=== PATIENT | female | born 1935 | race Caucasian/White ===

== ENCOUNTER 2020-09-21 06:59 | Outpatient (CLI) | payer MEDICARE, MEDICAID, SELFPAY ==
--- NOTE | 2020-09-21 08:00 | USCV_ITS ---
Bulmaro Zeina Age: 85 Gender: F : 1935 Exam Date: 09/21/2020 07:26 Ordering Phys: Gladys Patterson MD ([email or web address]) Technologist: Wilder Hollis Exam Location: [facility] [place] Indication: SOB, Murmur BP: 135 / 85 HR: 92 Rhythm: Sinus Technical Quality: Adequate MEASUREMENTS (Male / Female) Normal Values 2D ECHO LV Diastolic Diameter PLAX 3.8 cm 4.2 - 5.9 / 3.9 - 5.3 cm LV Systolic Diameter PLAX 2.9 cm IVS Diastolic Thickness 1.0 cm 0.6 - 1.0 / 0.6 - 0.9 cm IVS Systolic Thickness 1.3 cm LVPW Diastolic Thickness 1.1 cm 0.6 - 1.0 / 0.6 - 0.9 cm LVPW Systolic Thickness 1.6 cm LVOT Diameter 2.6 cm LV Ejection Fraction 2D Teich 47.2 % LV Ejection Fraction MOD 2C 42.7 % LV Ejection Fraction 2C AL 45.5 % LA Diameter 3.4 cm LA Width 3.7 cm LA Height 4.4 cm RA Width 3.7 cm RA Height 4.4 cm DOPPLER AV Peak Velocity 206.7 cm/s LVOT Peak Velocity 113.0 cm/s AV Area Cont Eq vti 3.6 cm squared AV Area Cont Eq pk 2.9 cm squared MV Area PHT 5.0 cm squared Mitral E to A Ratio 0.6 MV E' Velocity 54.0 cm/s Mitral E to MV E' Ratio 9.3 Mitral E to LV E' Lateral Ratio 11.4 Mitral E to LV E' Septal Ratio 7.8 TR Peak Velocity 141.3 cm/s TR Peak Gradient 8.0 mmHg TV Peak E Velocity 119.0 cm/s Right Atrial Pressure 3.0 mmHg Pulmonary Artery Systolic Pressu 11.0 mmHg PV Peak Velocity 99.0 cm/s FINDINGS Left Ventricle Normal left ventricular size, systolic function and wall thickness, with no regional wall motion abnormalities. Left ventricular ejection fraction is estimated at 65 %. Grade I diastolic dysfunction (abnormal relaxation filling pattern), normal to mildly elevated filling pressures. Right Ventricle Normal right ventricular size and systolic function. Right ventricular systolic pressure 11 mmHg. Right Atrium Normal right atrial size. Left Atrium Mildly increased left atrial size. Mitral Valve Moderate mitral annular calcification. Moderately thickened mitral valve. No mitral valve stenosis. Trace mitral valve regurgitation. Aortic Valve Aortic valve not well visualized. Aortic valve sclerosis without stenosis. Mild aortic valve regurgitation. Tricuspid Valve Structurally normal tricuspid valve. Trace tricuspid valve regurgitation. Pulmonic Valve Pulmonic valve not well visualized. Pericardium No pericardial effusion. Aorta Normal size aortic root and proximal ascending aorta. Normal sized inferior vena cava. CONCLUSIONS 1. Normal left ventricular size, systolic function and wall thickness, with no regional wall motion abnormalities. Left ventricular ejection fraction is estimated at 65 %. Grade I diastolic dysfunction (abnormal relaxation filling pattern), normal to mildly elevated filling pressures. 2. Moderate mitral annular calcification. Moderately thickened mitral valve. 3. Aortic valve sclerosis without stenosis. Mild aortic valve regurgitation. 4. No pericardial effusion. 5. No prior similar studies to compare. Gladys Patterson MD (Electronically Signed) Final Date: 25 September 2020 08:49 Amended: 30 November 2020 12:32 C
== END 2020-09-21 07:00 | disposition home or self-care (01) ==
PROVIDERS: PCP Physical Medicine & Rehabilitation; Visit Provider Internal Medicine Cardiovascular Disease
DX: I10 Essential (primary) hypertension (principal); R06.02 Shortness of breath; I50.9 Heart failure, unspecified
CPT/HCPCS: 93306

== ENCOUNTER 2020-12-13 10:43 | Emergency (ER) | payer MEDICARE, MEDICAID, SELFPAY ==
[2020-12-13 10:46] VITALS: BP 173/91; PULSE 90; RESP 18; TEMP 35.7; O2SAT 96; BMI 34.8
--- NOTE | 2020-12-13 11:09 | CT_ITS ---
WS: [id number] CT HEAD TECHNIQUE: Noncontrast CT of the head obtained from the skullbase to the vertex. CLINICAL INFORMATION: closed head injury COMPARISON: None. DLP: 909.[address] scans at [facility] use at least one of these dose optimization techniques: automated e xposure control; mA and/or kV adjustment per patient size (includes targeted exams where dose is matc hed to clinical indication); or iterative reconstruction. FINDINGS: Acute left subdural hematoma overlying the left posterior frontal lobe extending to the parietal lobe at the vertex. Subdural hematoma measures approximately 10 mm in maximum transverse dimension. Mild mass effect on the underlying brain parenchyma with mild left to right midline shift measuring 5 mm. No hydrocephalus. Additional tiny punctate focus of hemorrhage along the left frontal lobe. Soft tissue edema with scalp contusion overlying the right parietal convexity posteriorly. No calvari al fractures. Mastoid air cells and paranasal sinuses are well aerated. Mild mucosal thickening in th e ethmoid air cells. Intracranial vascular calcification. Moderate small vessel changes. Moderate parenchymal volume loss. 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 CT/CT head wo con* [id number] IMPRESSION: 1. Left posterior frontal parietal acute subdural hematoma with hemorrhagic bl ood products. This measures 10 mm in maximum transverse dimension. 2. Mild left to right midline shift measuring 5 mm. No hydrocephalus. 3. Moderate small vessel changes moderate parenchymal volume loss. 4. Chronic lacunar infarcts in bilateral basal ganglia and thalami. 5. Right parietal scalp soft tissue hematoma. No visualized fractures. Notified Lewis Vargas DO at 12/13/2020 12:15 PM.
[2020-12-13 11:30] LABS: Basophils % 0.2 %; Eosinophils # 0.1 10^3/uL (0.0-0.8); Eosinophils % 1.7 %; Hematocrit 35.3 % (37.0-47.0); Hemoglobin 11.3 g/dL (11.5-15.3); Lymphocytes # 0.6 10^3/uL (0.8-4.8); Lymphocytes % 9.1 %; Mean Corpuscular Hemoglobin 30.7 pg (28.0-34.0); Mean Corpuscular Volume 95.9 fl (81-99); Mean Platelet Volume 9.5 fL (7.4-10.4); Monocytes # 0.4 10^3/uL (0.2-0.9); Monocytes % 6.5 %; Neutrophils # 5.31 10^3/uL (1.8-7.7); Neutrophils % 82.3 %; Nucleated Red Blood Cells % 0 %; Platelet Count 241 10^3/cmm (130-400); Red Blood Count 3.68 10^6/uL (4.1-5.3); Red Cell Distribution Width 13.1 % (12.1-15.1); White Blood Count 6.5 10^3/uL (4.0-10.0)
[2020-12-13 11:56] LABS: Anion Gap 16.5 (5-19); Blood Urea Nitrogen 21 mg/dL (8-23); Calcium 8.8 mg/dL (8.5-10.5); Carbon Dioxide 27 mmol/L (22-29); Chloride 95 mmol/L (98-107); Glucose 219 mg/dL (65-115); Osmolality Calculated 288 mOsm/kg (285-295); Potassium 4.5 mmol/L (3.5-5.1); Sodium 134 mmol/L (136-145)
--- NOTE | 2020-12-13 12:07 | ED_ITS ---
HPI - Fall General: Chief Complaint: Fall Stated Complaint: TRIPPED, FALL Time Seen by Provider: 12/13/20 10:47 History of Present Illness: HPI Narrative: 85-year-old female was leaving a local hair salon and tripped over a parking block when she tried to step over it. She fell forward hit the back of the right side of her head she also has a small abrasion over the bridge of her nose. She denies loss consciousness she was ambulatory at scene she denies any hip pain or lower extremity pain denies any upper extremity pain or discomfort is able to move and demonstrate use of all extremities without pain. She is not on any anticoagulants. MD complaint: fall Onset (ago): minute(s) Fall from: standing Fall witnessed: yes, by bystander Place fall occurred: street Loss of consciousness: None Prolonged down time: no Symptoms prior to fall: none Context: tripped/slipped Location of injury: head Severity: moderate Quality: sharp Associated symptoms-after fall: Reports headache(s); Denies abdominal pain, chest pain, confusion, difficulty walking, hematuria, lightheadedness, neck pain, numbness, short of breath, vertigo or weakness Review of Systems Const: Denies: fever(s), chills, body aches, change in appetite, fatigue or malaise ENMT: Denies: throat pain, ear or mastoid pain, nasal discharge or nasal congestion Card: Denies: chest pain or lightheadedness Resp: Denies: dyspnea, productive cough or non-productive cough GI: Denies: abdominal pain : Denies: hematuria Musc: Denies: neck pain Skin/Breast: Denies: rash or pruritus Neuro: Reports: headache(s); Denies: difficulty walking, vertigo or confusion PFSH ED PFSH: Medical History Diabetes HTN (hypertension) Hyperlipidemia Surgical History Hx of hysterectomy Family History Brother Diabetes Sister Lung disease Daughter Lung disease Other Cancer Denies family history of CAD (coronary artery disease) Stroke Social History Smoking and tobacco status: former smoker Alcohol intake: never Physical Exam Const: COMMON NORMALS: no acute distress GENERAL APPEARANCE: cooperative and comfortable ORIENTATION/CONSCIOUSNESS: Yes awake, Yes oriented to person, Yes oriented to place and Yes oriented to time HENMT: COMMON NORMALS: normocephalic, atraumatic, hearing grossly normal bilaterally, external ears normal, EAC's normal, TM's normal bilaterally, Normal nasal mucous membranes and turbinates present, moist oral mucous membranes and oropharynx normal HEAD & SCALP: normocephalic and atraumatic NOSE: Normal nasal mucous membranes and turbinates present EXTERNAL EAR: Yes external ears normal EXTERNAL AUDITORY CANAL: EAC's normal TYMPANIC MEMBRANE: TM's normal bilaterally OTHER: Scalp laceration on the superior lateral occiput on the right. No active bleeding. Neck/C-Spine: COMMON NORMALS: no JVD Resp: COMMON NORMALS: normal respiratory effort, No retractions, No use of accessory muscles and clear to auscultation bilaterally AUSCULTATION: clear to auscultation bilaterally Cardio: COMMON NORMALS: no JVD, regular rate, regular rhythm and No murmurs present (Cardio) RATE: regular rate RHYTHM: regular rhythm GI: COMMON NORMALS: Soft to palpation and No hepatosplenomegaly present AUSCULTATION: Yes normoactive bowel sounds PALPATION: Yes Soft to palpation, No Tenderness to palpation present (GI), No Guarding due to palpation present (GI) and Yes No hepatosplenomegaly present Extremity: COMMON NORMALS: normal to inspection, capillary refill normal, no clubbing, cyanosis or edema, no calf tenderness and no pedal edema Neuro: SENSORIUM/ORIENTATION: Yes oriented to person, Yes oriented to place and Yes oriented to time Skin: COMMON NORMALS: no rashes or lesions noted GENERAL SKIN EXAM: no rashes or lesions noted Course Vital Signs: Vital signs: Vital Signs Temperature 96.3 F L 12/13/20 10:46 Pulse Rate 82 12/13/20 13:21 Respiratory Rate 18 12/13/20 13:21 Blood Pressure 138/83 12/13/20 13:21 Pulse Oximetry 99 12/13/20 13:21 MDM - Fall MDM Narrative: Medical decision making narrative: CT shows large subdural hematoma with a little bit of shift already having begun at maximum the subdural measures 10 mm. Arrangements made for transfr to trauma for neuro surgery eval, we do not have neurosurgery avaialble at our facility. Lab Data: Labs: Lab Results 12/13/20 12/13/20 11:24 11:24 WBC 6.5 10^3/uL 10^3/ uL (4.0-10.0) RBC 3.68 10^6/uL L 10 ^6/uL (4.1-5.3) Hgb 11.3 g/dL L g/dL (11.5-15.3) Hct 35.3 % L % (37.0-47.0) MCV 95.9 fl fl (81-99) MCH 30.7 pg pg (28.0-34.0) MCHC 32.0 g/dL g/dL (30.0-36.0) RDW 13.1 % % (12.1-15.1) Plt Count 241 10^3/cmm 10^3 /cmm (130-400) MPV 9.5 fL fL (7.4-10.4) Neut % (Auto) 82.3 % % Lymph % (Auto) 9.1 % % [place] % (Auto) 6.5 % % Eos % (Auto) 1.7 % % Baso % (Auto) 0.2 % % Neut # (Auto) 5.31 10^3/uL 10^3 /uL (1.8-7.7) Lymph # (Auto) 0.6 10^3/uL L 10^ 3/uL (0.8-4.8) [place] # (Auto) 0.4 10^3/uL 10^3/ uL (0.2-0.9) Eos # (Auto) 0.1 10^3/uL 10^3/ uL (0.0-0.8) Baso # (Auto) 0.0 10^3/uL 10^3/ uL (0.0-0.1) Nucleated RBC % (a uto) 0 % % Nucleated RBCs # 0.0 /100WBC /100W BC Sodium 134 mmol/L L mmol /L (136-145) Potassium 4.5 mmol/L mmol/L (3.5-5.1) Chloride 95 mmol/L L mmol/ L (98-107) Carbon Dioxide 27 mmol/L mmol/L (22-29) Anion Gap 16.5 (5-19) BUN 21 mg/dL mg/dL (8-23) Creatinine 1.1 mg/dL H mg/dL (0.5-0.9) GFR Calculation Not Reportable Glucose 219 mg/dL H mg/dL (65-115) Calculated Osmolal ity 288 mOsm/kg mOsm/ kg (285-295) Calcium 8.8 mg/dL mg/dL (8.5-10.5) Discharge Plan Discharge Patient Disposition: Transfer to ED Clinical Impression: Acute subdural hematoma Condition: Stable Prescriptions: No Action amitriptyline 25 mg tablet 25 mg PO DAILY RF: 0 citalopram 20 mg tablet 20 mg PO DAILY RF: 0 gabapentin 300 mg capsule 300 mg PO .2 caps AM, 3 caps PM RF: 0 lovastatin 20 mg tablet 20 mg PO DAILY RF: 0 pioglitazone 30 mg tablet 30 mg PO DAILY RF: 0 Januvia 25 mg tablet 25 mg PO DAILY RF: 0 Januvia 50 mg tablet 50 mg PO DAILY RF: 0 Referrals: Stuart Vera [Primary Care Provider] - Coding Level of Care Code ED Field Service Technician for Rudolph Patino
--- NOTE | 2020-12-13 12:21 | CT_ITS ---
WS: [id number] CT CERVICAL TRAUMA TECHNIQUE: Noncontrast CT of the cervical spine with coronal and sagittal reformatted images. CLINICAL INFORMATION: fall clsoed head injury COMPARISON: None. DLP: 823.[address] scans at [facility] use at least one of these dose optimization techniques: automated e xposure control; mA and/or kV adjustment per patient size (includes targeted exams where dose is matc hed to clinical indication); or iterative reconstruction. FINDINGS: Straightening of the normal cervical lordosis. Mild cervical curve. Moderate spondylitic changes. Ant erior hypertrophic changes C4-C7. Normal craniocervical junction. Normal C1-C2 articulation. Dens is normal in appearance. Normal occipital condyles. No high-grade spinal canal narrowing. Normal C1 ring . No evidence of acute fracture or dislocation. Normal prevertebral soft tissues. Mild mucosal thickening right mastoid tip. Left mastoid air cells are well aerated. CT/CT cervical spin wo con* [id number] IMPRESSION: No evidence of acute fracture or dislocation. Moderate spondylitic changes.
--- NOTE | 2020-12-13 12:35 | PC.NURSE ---
Report to Sarah Thomason RN. Norris.
[2020-12-13] MEDS: tetanus-dipt-pertussis 0.5 mL SDV IM (13:20)
[2020-12-13 13:21] VITALS: BP 138/83; PULSE 82; RESP 18; O2SAT 99
== END 2020-12-13 13:23 ==
PROVIDERS: Emergency Provider Family Medicine; PCP Physical Medicine & Rehabilitation
DX: S06.5X9A Traumatic subdural hemorrhage with loss of consciousness of unspecified duration, initial encounter (principal); W18.09XA Striking against other object with subsequent fall, initial encounter; Y92.481 Parking lot as the place of occurrence of the external cause; E11.9 Type 2 diabetes mellitus without complications; I10 Essential (primary) hypertension; E78.5 Hyperlipidemia, unspecified; Z87.891 Personal history of nicotine dependence; Z23 Encounter for immunization; S00.31XA Abrasion of nose, initial encounter
CPT/HCPCS: 51702; 70450; 72125; 80048; 85025; 90471; 90715; 99283

== ENCOUNTER → 2021-02-19 11:26 | Outpatient (BNVA) | payer MEDICARE, MEDICAID, SELFPAY | PROVIDERS: PCP Physical Medicine & Rehabilitation; Visit Provider Family Medicine | DX: E11.9 Type 2 diabetes mellitus without complications (principal); I10 Essential (primary) hypertension; E78.5 Hyperlipidemia, unspecified | CPT/HCPCS: 80053; 83036; 84439; 84443; 85025 ==

== ENCOUNTER → 2021-06-04 10:43 | Outpatient (BNVA) | payer MEDICARE, MEDICAID, SELFPAY | PROVIDERS: PCP Physical Medicine & Rehabilitation; Visit Provider Family Medicine | DX: I10 Essential (primary) hypertension (principal); E78.5 Hyperlipidemia, unspecified; E11.9 Type 2 diabetes mellitus without complications | CPT/HCPCS: 80053; 80061; 83036 ==

== ENCOUNTER → 2021-09-03 12:13 | Outpatient (BNVA) | payer MEDICARE, MEDICAID, SELFPAY | PROVIDERS: PCP Physical Medicine & Rehabilitation; Visit Provider Family Medicine | DX: E11.9 Type 2 diabetes mellitus without complications (principal); L03.116 Cellulitis of left lower limb; I10 Essential (primary) hypertension; E78.5 Hyperlipidemia, unspecified | CPT/HCPCS: 83036; 85025 ==

== ENCOUNTER → 2021-09-14 11:07 | Outpatient (BNVA) | payer MEDICARE, MEDICAID, SELFPAY | PROVIDERS: PCP Physical Medicine & Rehabilitation; Visit Provider Thoracic Surgery (Cardiothoracic Vascular Surgery) | DX: Z01.89 Encounter for other specified special examinations (principal) | CPT/HCPCS: 87070 ==

== ENCOUNTER → 2021-09-20 12:23 | Outpatient (BNVA) | payer MEDICARE, MEDICAID, SELFPAY | PROVIDERS: PCP Physical Medicine & Rehabilitation; Visit Provider Internal Medicine Cardiovascular Disease | DX: R01.1 Cardiac murmur, unspecified (principal); I10 Essential (primary) hypertension; I35.8 Other nonrheumatic aortic valve disorders; I35.1 Nonrheumatic aortic (valve) insufficiency; E11.9 Type 2 diabetes mellitus without complications; E78.5 Hyperlipidemia, unspecified; Z79.84 Long term (current) use of oral hypoglycemic drugs | CPT/HCPCS: 99213; 99214 ==

== ENCOUNTER → 2021-10-05 09:42 | Outpatient (BNVA) | payer MEDICARE, MEDICAID, SELFPAY | PROVIDERS: PCP Physical Medicine & Rehabilitation; Visit Provider Nurse Practitioner Family | DX: E11.9 Type 2 diabetes mellitus without complications (principal); I95.9 Hypotension, unspecified | CPT/HCPCS: 82962 ==

== ENCOUNTER → 2021-10-17 14:08 | Outpatient (BNVA) | payer MEDICARE, MEDICAID, SELFPAY | PROVIDERS: PCP Physical Medicine & Rehabilitation; Visit Provider Family Medicine | DX: E86.0 Dehydration (principal); I73.9 Peripheral vascular disease, unspecified; Z09 Encounter for follow-up examination after completed treatment for conditions other than malignant neoplasm; E11.9 Type 2 diabetes mellitus without complications | CPT/HCPCS: 80053; 83036 ==

== ENCOUNTER → 2021-12-25 09:43 | Outpatient (BNVA) | payer MEDICARE, MEDICAID, SELFPAY | PROVIDERS: PCP Family Medicine; Visit Provider Nurse Practitioner Family | DX: E16.2 Hypoglycemia, unspecified (principal) | CPT/HCPCS: 82962 ==

== ENCOUNTER → 2022-01-23 09:59 | Outpatient (BNVA) | payer MEDICARE, MEDICAID, SELFPAY | PROVIDERS: PCP Family Medicine; Visit Provider Family Medicine | DX: E11.9 Type 2 diabetes mellitus without complications (principal) | CPT/HCPCS: 83036 ==

== ENCOUNTER → 2022-04-22 09:06 | Outpatient (BNVA) | payer MEDICARE, MEDICAID, SELFPAY | PROVIDERS: PCP Family Medicine; Visit Provider Family Medicine | DX: E16.2 Hypoglycemia, unspecified (principal); E11.9 Type 2 diabetes mellitus without complications | CPT/HCPCS: 83036 ==

== ENCOUNTER 2022-06-13 12:28 | Observation (INO) | payer MEDICARE, MEDICAID, SELFPAY ==
[2022-06-13] VITALS (59 sets, daily range): BP systolic 120–190; BP diastolic 63–151; PULSE 63–88; RESP 9–29; TEMP 36.4–36.8; O2SAT 87–98
--- NOTE | 2022-06-13 12:41 | ED_ITS ---
HPI - Recheck/Abnormal Lab/Rx General: Chief Complaint: Recheck/Abnormal Lab/Rx Stated Complaint: Abnormal Lab Time Seen by Provider: 06/13/22 12:37 Source: patient Mode of arrival: ambulatory History of Present Illness: 87-year-old female who presents to the emergency room complaining of black tarry stools. She was seen by the doctor noted on told her hemoglobin was 7. She has been lightheaded and dizzy she has had the black tarry stools for the last several days she denies any fever sweats or chills no vomiting. She is not on any anticoagulants has not been taking any Pepto-Bismol or iron supplementation. She does take ibuprofen relatively frequently. MD complaint: abnormal lab Associated symptoms: shortness of breath and malaise Review of Systems Const: Denies: fever(s), chills, body aches, change in appetite, fatigue or malaise ENMT: Denies: throat pain, ear or mastoid pain, nasal discharge or nasal congestion Card: Denies: chest pain, palpitations, irregular heart rhythm, edema, dyspnea on exertion or orthopnea Resp: Denies: dyspnea, productive cough or non-productive cough GI: Denies: abdominal pain, nausea, vomiting, hematemesis, coffee ground emesis, diarrhea, constipation, bloating, hematochezia or melena : Denies: flank pain, difficulty voiding, dysuria, urinary frequency or urinary urgency Skin/Breast: Denies: rash or pruritus [facility] ED PFSH: Medical History Diabetes HTN (hypertension) Hyperlipidemia Recurrent dehydration Surgical History Hx of hysterectomy Family History Brother Diabetes Sister Lung disease Daughter Lung disease Other Cancer Denies family history of CAD (coronary artery disease) Stroke Social History Smoking and tobacco status: former smoker Alcohol intake: never Substance/Drug Use: never Physical Exam Const: COMMON NORMALS: no acute distress GENERAL APPEARANCE: cooperative and comfortable ORIENTATION/CONSCIOUSNESS: Yes awake, Yes oriented to person, Yes oriented to place and Yes oriented to time HENMT: COMMON NORMALS: normocephalic, atraumatic and hearing grossly normal bilaterally HEAD & SCALP: normocephalic and atraumatic Resp: COMMON NORMALS: normal respiratory effort, No retractions, No use of accessory muscles and clear to auscultation bilaterally AUSCULTATION: clear to auscultation bilaterally Cardio: COMMON NORMALS: regular rate, regular rhythm and No murmurs present (Cardio) RATE: regular rate RHYTHM: regular rhythm GI: COMMON NORMALS: Soft to palpation and No hepatosplenomegaly present AUSCULTATION: Yes normoactive bowel sounds PALPATION: Yes Soft to palpation, No Tenderness to palpation present (GI), No Guarding due to palpation present (GI) and Yes No hepatosplenomegaly present Extremity: COMMON NORMALS: normal to inspection, capillary refill normal, no clubbing, cyanosis or edema, no calf tenderness and no pedal edema Neuro: SENSORIUM/ORIENTATION: Yes oriented to person, Yes oriented to place and Yes oriented to time Skin: COMMON NORMALS: no rashes or lesions noted GENERAL SKIN EXAM: no rashes or lesions noted Course Vital Signs: Vital signs: Vital Signs Temperature 97.6 F 06/15/22 16:13 Pulse Rate 95 06/15/22 16:13 Respiratory Rate 17 06/15/22 16:13 Blood Pressure 157/73 06/15/22 16:13 Pulse Oximetry 96 06/15/22 16:13 Oxygen Delivery Me thod Room Air 06/15/22 00:00 MDM - Recheck/Abnormal Lab/Rx Medical Decision Making Globin 8.7. Patient is having black tarry stools she was positive on a Hemoccult. Has had a significant decrease in hemoglobin. Discussed with hospitalist will admit consult surgery for possible EGD. Serial hemoglobins has been given Protonix. Mild acute kidney injury. Medical Records I reviewed the patient's medical records. Lab Data I reviewed the patient's lab results. 06/15/22 06:30 06/15/22 06:30 Radiology Impressions Abdomen/Pelvis CT 06/13/22 14:38 IMPRESSION: 1. Cholelithiasis without evidence for acute cholecystitis. 2. Mild hepatomegaly. 3. No renal obstruction. 4. No adenopathy or ascites. Laboratory Results WBC 4.7 10^3/uL (4.0-10.0) 06/13/22 13:15 RBC 2.23 10^6/uL (4.1-5.3) L 06/13/22 13:15 Hgb 6.9 g/dL (11.5-15.3) L 06/13/22 13:15 Hct 21.3 % (37.0-47.0) L 06/13/22 13:15 MCV 95.5 fl (81-99) 06/13/22 13:15 MCH 30.9 pg (28.0-34.0) 06/13/22 13:15 MCHC 32.4 g/dL (30.0-36.0) 06/13/22 13:15 RDW 12.6 % (12.1-15.1) 06/13/22 13:15 Plt Count 222 10^3/cmm (130-400) 06/13/22 13:15 MPV 9.9 fL (7.4-10.4) 06/13/22 13:15 Neut % (Auto) 62.4 % 06/13/22 13:15 Lymph % (Auto) 23.3 % 06/13/22 13:15 [place] % (Auto) 9.7 % 06/13/22 13:15 Eos % (Auto) 3.8 % 06/13/22 13:15 Baso % (Auto) 0.2 % 06/13/22 13:15 Neut # (Auto) 2.95 10^3/uL (1.8-7.7) 06/13/22 13:15 Lymph # (Auto) 1.1 10^3/uL (0.8-4.8) 06/13/22 13:15 [place] # (Auto) 0.5 10^3/uL (0.2-0.9) 06/13/22 13:15 Eos # (Auto) 0.2 10^3/uL (0.0-0.8) 06/13/22 13:15 Baso # (Auto) 0.0 10^3/uL (0.0-0.1) 06/13/22 13:15 Nucleated RBC % (auto) 0 % 06/13/22 13:15 Nucleated RBCs # 0.0 /100WBC 06/13/22 13:15 PT 13.30 SECONDS (12.1-14.9) 06/13/22 13:15 INR 0.98 (0.8-1.2) 06/13/22 13:15 APTT 29.0 SECONDS (23.9-36.7) 06/13/22 13:15 Sodium 137 mmol/L (136-145) 06/13/22 13:15 Potassium 3.8 mmol/L (3.5-5.1) 06/13/22 13:15 Chloride 99 mmol/L (98-107) 06/13/22 13:15 Carbon Dioxide 25 mmol/L (22-29) 06/13/22 13:15 Anion Gap 16.8 (5-19) 06/13/22 13:15 BUN 37 mg/dL (8-23) H 06/13/22 13:15 Creatinine 2.4 mg/dL (0.5-0.9) H 06/13/22 13:15 GFR Calculation Not Reportable 06/13/22 13:15 Glucose 121 mg/dL (65-115) H 06/13/22 13:15 Calculated Osmolality 294 mOsm/kg (285-295) 06/13/22 13:15 Calcium 8.9 mg/dL (8.5-10.5) 06/13/22 13:15 Total Bilirubin 0.2 mg/dL (0.15-1.2) 06/13/22 13:15 AST 16 U/L (0-32) 06/13/22 13:15 ALT 11 U/L (0-33) 06/13/22 13:15 Alkaline Phosphatase 47 U/L (35-105) 06/13/22 13:15 Total Protein 7.0 g/dL (6.6-8.7) 06/13/22 13:15 Albumin 3.9 g/dL (3.5-5.2) 06/13/22 13:15 Globulin 3.1 g/dL (1.3-4.6) 06/13/22 13:15 Urine Color Yellow (Yellow) 06/13/22 13:51 Urine Appearance Clear (CLEAR) 06/13/22 13:51 Urine pH 5 (5-7) 06/13/22 13:51 Ur Specific [place] 1.005 (1.005-1.030) 06/13/22 13:51 Urine Protein Neg (Negative) 06/13/22 13:51 Urine Glucose (UA) Norm (Normal) 06/13/22 13:51 Urine Ketones Negative (Negative) 06/13/22 13:51 Urine Blood 2+ (Negative) H 06/13/22 13:51 Urine Nitrate Negative (Negative) 06/13/22 13:51 Urine Bilirubin Neg (Negative) 06/13/22 13:51 Urine Urobilinogen Neg mg/dL (Negative) 06/13/22 13:51 Ur Leukocyte Esterase Negative (Negative) 06/13/22 13:51 Urine RBC 0-4 /hpf (0-2) H 06/13/22 13:51 Urine WBC None /hpf (0-5) 06/13/22 13:51 Ur Squamous Epith Cells None /hpf (0-5) 06/13/22 13:51 Amorphous Sediment 1+ /hpf 06/13/22 13:51 Urine Bacteria None /hpf (NONE) 06/13/22 13:51 Blood Type B Positive 06/13/22 13:15 Rho(D) Type Positive 06/13/22 13:15 Antibody Screen Not Reportable 06/13/22 13:15 PEG Antibody Screen Negative 06/13/22 13:15 Crossmatch See Detail 06/13/22 13:15 Discharge Plan Discharge Patient Disposition: Admitted As Inpatient Admit Provider: Maritza Adhikari Clinical Impression: GI (gastrointestinal bleed), IRVING (acute kidney injury) Condition: Stable Discharge Diet: Usual diet Discharge Activity: Resume usual activity Coding Level of Care Code ED Janitorial Maintenance Worker for Chg Sukumar
[2022-06-13] MEDS: ondansetron 2 mg/ML SDV 2 mL 4 MG IVP (13:22)
[2022-06-13 13:31] LABS: Basophils % 0.2 %; Eosinophils # 0.2 10^3/uL (0.0-0.8); Eosinophils % 3.8 %; Hematocrit 21.3 % (37.0-47.0); Hemoglobin 6.9 g/dL (11.5-15.3); Lymphocytes # 1.1 10^3/uL (0.8-4.8); Lymphocytes % 23.3 %; Mean Corpuscular HGB Conc 32.4 g/dL (30.0-36.0); Mean Corpuscular Hemoglobin 30.9 pg (28.0-34.0); Mean Corpuscular Volume 95.5 fl (81-99); Mean Platelet Volume 9.9 fL (7.4-10.4); Monocytes # 0.5 10^3/uL (0.2-0.9); Monocytes % 9.7 %; Neutrophils # 2.95 10^3/uL (1.8-7.7); Neutrophils % 62.4 %; Nucleated Red Blood Cells % 0 %; Platelet Count 222 10^3/cmm (130-400); Red Blood Count 2.23 10^6/uL (4.1-5.3); Red Cell Distribution Width 12.6 % (12.1-15.1); White Blood Count 4.7 10^3/uL (4.0-10.0)
[2022-06-13 13:44] LABS: INR 0.98 (0.8-1.2)
[2022-06-13 13:48] LABS: Alanine Aminotransferase 11 U/L (0-33); Albumin Level 3.9 g/dL (3.5-5.2); Alkaline Phosphatase 47 U/L (35-105); Anion Gap 16.8 (5-19); Aspartate Amino Transferase 16 U/L (0-32); Blood Urea Nitrogen 37 mg/dL (8-23); Calcium 8.9 mg/dL (8.5-10.5); Carbon Dioxide 25 mmol/L (22-29); Chloride 99 mmol/L (98-107); Globulin 3.1 g/dL (1.3-4.6); Glucose 121 mg/dL (65-115); Osmolality Calculated 294 mOsm/kg (285-295); Potassium 3.8 mmol/L (3.5-5.1); Sodium 137 mmol/L (136-145); Total Bilirubin 0.2 mg/dL (0.15-1.2)
--- NOTE | 2022-06-13 14:19 | PC.PHAR ---
pt states vazquez friend [phone] sets up her medications-vazquez states the pt doesnt take cymbalta 20mg daily ext med history shows last filled 05/21/22 30d/s-vazquez states the pt takes ibu 800mg qam and 1600mg hs rx filled 06/11/22 30d/s for 800mg tid prn-vazquez states the pt takes gabapentin 600mg hs rx filled 06/04/22 30d/s for 300mg bid-notes are made in the pharmacy comments
[2022-06-13 14:32] LABS: Add Urine Microscopic? YES; Bilirubin Urine Neg (Negative); Blood Urine 2+ (Negative); Glucose Urine UA Norm (Normal); Ketones Urine Negative (Negative); Leukocyte Esterase Urine Negative (Negative); Nitrate Urine Negative (Negative); Protein Urine Neg (Negative); Specific Gravity, Urine 1.005 (1.005-1.030); Urine Appearance Clear (CLEAR); Urine Color Yellow (Yellow); Urobilinogen Urine Neg (Negative); pH Urine 5 (5-7)
[2022-06-13 14:33] LABS: Add Urine Culture? No; Amorphous Sediment Urine 1+ /hpf; RBC Urine 0-4 /hpf (0-2)
--- NOTE | 2022-06-13 14:38 | CT_ITS ---
WS: [id number] CT ABDOMEN AND PELVIS NONCONTRAST HISTORY: Abdominal pain TECHNIQUE: Imaging performed through the abdomen and pelvis. Coronal and sagittal reformats are submi tted. All CT scans at [facility] use at least one of these dose optimization techniques: auto mated exposure control; mA and/or kV adjustment per patient size (includes targeted exams where dose is matched to clinical indication); or iterative reconstruction. DLP: 805.33 mGy.cm COMPARISON: None available. Lower thorax: Lung bases are clear. Visualized heart is normal. No hiatal hernia. Liver: Liver is enlarged extending to the iliac crest. No bile duct dilatation. Gallbladder: Normally distended gallbladder with single 11 mm gallstone at the neck. No adjacent infl ammation. Pancreas: Normal size and attenuation. Normal pancreatic duct. No pancreatitis or mass. Spleen: Normal. Adrenal glands: Normal. No mass. Right kidney: Normal size kidney with no mass or hydronephrosis. Left kidney: Normal size kidney with no mass or hydronephrosis. Aorta: Mild atherosclerosis abdominal aorta with no aneurysm. No free fluid, intraperitoneal air or significant lymphadenopathy. GI tract: Normal noncontrast imaging of the stomach, small bowel and colon. No obstruction or wall th ickening. Abdominal wall: Negative. No hernia. Pelvis: Artifact through the pelvis from patient's RIGHT hip arthroplasty. Visualized bladder is nega tive. No free fluid or adenopathy. Osseous structures: Moderate degenerative spondylitic changes in the lumbar spine. CT/CT abdomen pelvis wo con [id number] IMPRESSION: 1. Cholelithiasis without evidence for acute cholecystitis. 2. Mild hepatomegaly. 3. No renal obstruction. 4. No adenopathy or ascites.
[2022-06-13] MEDS: pantoprazole 40 mg SDV 80 MG IVP (14:55)
[2022-06-13] MEDS: sodium chloride 0.9% 1,000 ML 999 ML IV (14:55)
[2022-06-13] MEDS: sodium chloride 0.9% 1,000 ML 100 ML IV (18:31)
--- NOTE | 2022-06-13 19:04 | P.HP_ITS ---
Providers/Chief Complaint Admitting Physician: Maritza Adhikari MD Primary Care Provider: Joaquin Kitchen DO Chief Complaint: Abnormal Lab History of Present Illness Zeina Chamberlain is a 87 year old female presenting with abdominal discomfort and drak black melanotic stools over the past week. Prsented to her PCP where she was found to have anemia. Vomiting + but no hematemesis. No fever. no past h/o GI bleed. Chronically takes NSAIds and reports heartburn. Today cr found to be 2.5, previosuly 1.3 from 09/2021. Review of Systems General: Reports: 10 or more systems reviewed and unremarkable except in HPI and below Const: Denies: fever(s), chills or body aches Eyes: Denies: change in vision, blurry vision or photophobia ENMT: Reports: hoarseness; Denies: throat pain, enlarged tonsils, odynophagia or nasal congestion Card: Denies: chest pain, palpitations, irregular heart rhythm, edema, swelling of feet/ankles, lightheadedness, pre-syncope, dyspnea on exertion or orthopnea Resp: Denies: dyspnea, productive cough, non-productive cough, wheezing, stridor, pain on inspiration, change in phlegm color, hemoptysis or chest congestion GI: Denies: abdominal pain, nausea, vomiting, hematemesis, coffee ground emesis, dysphagia, heartburn, diarrhea, constipation, GI cramping, change in stool character, hematochezia or melena : Denies: flank pain, difficulty voiding, dysuria, urinary frequency, urinary urgency, urinary hesitancy or hematuria Musc: Denies: neck pain, back pain, extremity pain, joint swelling, joint warmth or deformity Neuro: Denies: headache(s), numbness in extremities, weakness in extremities, sensory changes, difficulty walking, frequent falls, dizziness, vertigo, behavioral changes, Slurred speech present or seizure-like activity Psych: Denies: anxiety, depression, suicidal ideation or homicidal ideation Endo: Denies: polyuria, polydipsia, tired all the time, cold intolerance or hot flashes Jayesh/Lymph: Denies: easy bruising or easy bleeding Medications/Allergies Home Medications Medication Instructions Recorded Confirmed Last Taken Type potassium gluconate 595 mg (99 mg) 595 mg PO BEDTIME 02/19/21 06/13/2223 History tablet metoprolol succinate 50 mg 50 mg PO QAM 12/03/21 06/13/22 06/13/22 History tablet,extended release 24 hr efhovyrm-diz- 250 mg-dha 90 1 cap PO QAM 04/22/22 06/13/22 06/13/22 Histo ry mg-epa 160 hl-alnx-npnr-zeax capsule (Ocuvite Adult 50 Plus) amitriptyline 25 mg tablet 25 mg PO QAM 06/13/22 06/13/22 06/13/22 History biotin 5,000 mcg sublingual tablet 10,000 mcg sublingual QAM 06/13/22 06/13/22 06/13/22 History chromium picolinate 400 mcg tablet 400 mcg PO QAM 06/13/22 06/13/22 06/13/22 History gabapentin 300 mg capsule 600 mg PO BEDTIME 06/13/22 06/13/22 06/12/22 History ibuprofen 800 mg tablet See Rx Instructions .Route .COMPLEX 06/13/22 06/13/22 0 06/13/22 History lovastatin 20 mg tablet 20 mg PO QAM 06/13/22 06/13/22 06/13/22 History pioglitazone 30 mg tablet 30 mg PO QAM 06/13/22 06/13/22 06/13/22 History vitamin with calcium 1 tab PO QAM 06/13/22 06/13/22 06/13/22 History no.72-iron 27 mg-folic acid 1 mg tablet (M-Anisa Plus) sitagliptin phosphate 50 mg tablet 50 mg PO QAM 06/13/22 06/13/22 06/13/22 History (Januvia) Allergies Allergy/AdvReac Type Severity Reaction Status Date / Time No Known Allergies Allergy Verified 06/13/22 14:07 PFSH Acute PFSH: Medical History Diabetes HTN (hypertension) Hyperlipidemia Recurrent dehydration Surgical History Hx of hysterectomy Family History Brother Diabetes Sister Lung disease Daughter Lung disease Other Cancer Denies family history of CAD (coronary artery disease) Stroke Social History Smoking and tobacco status: former smoker Alcohol intake: never Substance/Drug Use: never Vitals/I&O/Wt Last Vital Signs Temp 97.5 F L 06/13/22 16:11 Pulse 73 06/13/22 18:47 Resp 20 H 06/13/22 18:00 BP 188/79 06/13/22 18:47 Pulse Ox 97 06/13/22 18:47 O2 Del Method Room Air 06/13/22 18:11 06/13/22 06/13/22 06/13/22 06:59 14:59 22:59 Intake Total 1000 / 1000 Balance 1000 / 1000 Weight last 48 hrs Weight 86.636 kg Physical Exam Narrative: General: No acute distress, AO x3 HEENT: PERRLA, pupils bilaterally equal and reactive, pallors not present Chest: Normal vesicular breath sounds, no added sounds, equal good air entry bilaterally CVS: S1-S2 regular, no murmurs, no tachycardia, no gallops, no rubs Abdomen: Soft, nontender, no organomegaly, bowel sounds present Neuro: No focal deficits, no facial deformity, AO x3, power 5/5 in all limbs Data 06/14/22 17:07 06/14/22 04:31 A&P Assessment and plan (1) GI bleed: Upper GI bleed p/w miryam suspect gastritis vs gastric vs duodenal ulcer likely precipitated by chronic NSAID use NPO Received protonix 80 mg iv x 1 in ER, start 40mg iv q12h Surgery consult for EGD (2) Anemia: Anemia secondary to upper GI bleed. Transfuse one unit PRBC check H& H every 8 hrs Plan Possible IRVING on CKD, last known Cr. 1.3 from 09/2021 May have underlying CKD vs IRVING on CKD Hold all NSAIDs avoid nephrotoxic medications Attestations Medical Necessity Statement*: > 2 midnight admission anticipated for UGI bleed, EGD, close H&H monitoring Coding Level of Care Code Acute Code for Chg Fwd Diagnoses GI bleed K92.2 Anemia D64.9
[2022-06-13 20:32] LABS: Glucose Point of Care 253 mg/dL (70-110)
[2022-06-13] MEDS: gabapentin 300 mg Capsule 600 MG PO (21:03)
[2022-06-13] MEDS: insulin lispro 100 unit/1 mL SUBCUT (21:03)
[2022-06-13 21:07] LABS: Basophils % 0.2 %; Eosinophils # 0.2 10^3/uL (0.0-0.8); Eosinophils % 4.3 %; Hematocrit 25.4 % (37.0-47.0); Hemoglobin 8.2 g/dL (11.5-15.3); Lymphocytes # 1.2 10^3/uL (0.8-4.8); Lymphocytes % 23.1 %; Mean Corpuscular HGB Conc 32.3 g/dL (30.0-36.0); Mean Platelet Volume 9.9 fL (7.4-10.4); Monocytes # 0.5 10^3/uL (0.2-0.9); Monocytes % 9.8 %; Neutrophils # 3.29 10^3/uL (1.8-7.7); Neutrophils % 62.2 %; Nucleated Red Blood Cells % 0 %; Platelet Count 217 10^3/cmm (130-400); Red Blood Count 2.73 10^6/uL (4.1-5.3); Red Cell Distribution Width 13.6 % (12.1-15.1); White Blood Count 5.3 10^3/uL (4.0-10.0)
--- NOTE | 2022-06-13 21:20 | PC.NURSE ---
Previous IV in left AC removed due to infiltration. Catheter tip intact upon removal, patient tolerated well.
[2022-06-13] MEDS: pantoprazole 40 mg SDV IVP (22:28)
[2022-06-14] VITALS (7 sets, daily range): BP systolic 123–182; BP diastolic 67–91; PULSE 81–91; RESP 16–20; TEMP 36.3–36.6; O2SAT 93–96
--- NOTE | 2022-06-14 04:16 | PC.NURSE ---
PO morning meds held per Dr Jorgensen, as patient is currently NPO.
[2022-06-14 05:40] LABS: Alanine Aminotransferase 10 U/L (0-33); Albumin Level 3.4 g/dL (3.5-5.2); Alkaline Phosphatase 45 U/L (35-105); Anion Gap 16.8 (5-19); Aspartate Amino Transferase 15 U/L (0-32); Blood Urea Nitrogen 41 mg/dL (8-23); Calcium 8.2 mg/dL (8.5-10.5); Carbon Dioxide 23 mmol/L (22-29); Chloride 105 mmol/L (98-107); Globulin 2.9 g/dL (1.3-4.6); Glucose 99 mg/dL (65-115); Osmolality Calculated 302 mOsm/kg (285-295); Potassium 3.8 mmol/L (3.5-5.1); Sodium 141 mmol/L (136-145); Total Bilirubin 0.2 mg/dL (0.15-1.2); Total Protein 6.3 g/dL (6.6-8.7)
[2022-06-14] MEDS: sodium chloride 0.9% 1,000 ML 100 ML IV (06:11)
[2022-06-14] MEDS: pantoprazole 40 mg SDV IVP ×2 (06:11→17:19)
[2022-06-14 06:58] LABS: Glucose Point of Care 137 mg/dL (70-110)
[2022-06-14] MEDS: morphine 4 mg/mL SDV 1 mL 2 MG IVP (08:28)
[2022-06-14 11:08] LABS: Glucose Point of Care 157 mg/dL (70-110)
--- NOTE | 2022-06-14 12:13 | P.ANESASSM_ITS ---
Pre-Anesthetic Assessment Height/Weight: Height 1.63 m Weight 86.636 kg Temp Pulse Resp BP Pulse Ox O2 Del Method 97.4 F L 86 16 172/90 93 Room Air 06/14/22 11:48 06/14/22 11:48 06/14/22 11:48 06/14/22 11:48 06/14/22 11:48 06/14/22 11:48 Operation Date: 06/14/22 11:45 Proposed Procedures p EGD(Not Applicable) - Danish Fernandes DO Familial anesthetic complications: None Was Beta Samir taken within 24 hours: N/A Was Clonidine taken within 24 hours: N/A Social No alcohol and No tobacco Exam alert, oriented x 3, clear to auscultation bilaterally and regular rate & rhythm murmur Airway Mallampati: Class III Dentition: false CV/HEM Anemia and Hypertension GI Gi bleed Metabolic Diabetes Mellitus, Hyperlipidemia and Morbid Obesity Anesthetic Plan ASA status: 3 Anesthesia: MAC Risk of > 500 ml blood loss (7ml/kg in children): No Medications/Allergies Home Medications Medication Instructions Recorded Confirmed Last Taken Type potassium gluconate 595 mg (99 mg) 595 mg PO BEDTIME 02/19/21 06/13/22 06/12/22 History tablet metoprolol succinate 50 mg 50 mg PO QAM 12/03/21 06/13/22 06/13/22 History tablet,extended release 24 hr ecpjelkg-lcs- 250 mg-dha 90 1 cap PO QAM 04/22/22 06/13/22 06/13/22 History mg-epa 160 lz-gczh-vaze-zeax capsule (Ocuvite Adult 50 Plus) amitriptyline 25 mg tablet 25 mg PO QAM 06/13/22 06/13/22 06/13/22 History biotin 5,000 mcg sublingual tablet 10,000 mcg sublingual QAM 06/13/22 06/13/22 06/13/22 History chromium picolinate 400 mcg tablet 400 mcg PO QAM 06/13/22 06/13/22 06/13/22 History gabapentin 300 mg capsule 600 mg PO BEDTIME 06/13/22 06/13/22 06/12/22 History ibuprofen 800 mg tablet See Rx Instructions .Route .COMPLEX 06/13/22 06/13/22 06/13/22 History lovastatin 20 mg tablet 20 mg PO QAM 06/13/22 06/13/22 06/13/22 History pioglitazone 30 mg tablet 30 mg PO QAM 06/13/22 06/13/22 06/13/22 History vitamin with calcium 1 tab PO QAM 06/13/22 06/13/22 06/13/22 History no.72-iron 27 mg-folic acid 1 mg tablet (M-Anisa Plus) sitagliptin phosphate 50 mg tablet 50 mg PO QAM 06/13/22 06/13/22 06/13/22 History (Oscaruvia) Allergies Allergy/AdvReac Type Severity Reaction Status Date / Time No Known Allergies Allergy Verified 06/13/22 14:07 Current Medications Generic Name Dose Route Start Last Admin Trade Name Freq PRN Reason Stop Dose Admin Amitriptyline HCl 25 mg 06/14/22 06:00 06/14/22 04:16 Amitriptyline 25 Mg Tablet PO Not Given QAM ANNA Atorvastatin Calcium 20 mg 06/14/22 06:00 06/14/22 04:16 Atorvastatin 40 Mg Tablet PO Not Given QAM ANNA Gabapentin 600 mg 06/13/22 21:00 06/13/22 21:03 Gabapentin 300 Mg Capsule PO 600 mg BEDTIME ANNA Administration Sodium Chloride 1,000 mls @ 75 mls/hr 06/13/22 18:10 06/14/22 06:11 Sodium Chloride 0.9% IV 100 mls/hr .[id number] ANNA Administration Insulin Human Lispro 0 unit 06/13/22 21:00 06/14/22 11:29 Insulin Lispro 100 Unit/1 Ml SUBCUT Not Given WM&BEDTIME ANNA Protocol Metoprolol Succinate 50 mg 06/14/22 06:00 06/14/22 04:16 Metoprolol Succinate Er (24 Hr) 50 Mg Tablet PO Not Given QAM ANNA Morphine Sulfate 2 mg 06/13/22 18:58 06/14/22 08:28 Morphine 4 Mg/Ml Sdv 1 Ml IVP 2 mg Q4H PRN Administration SEVERE PAIN Pantoprazole Sodium 40 mg 06/13/22 19:00 06/14/22 06:11 Pantoprazole 40 Mg Sdv IVP 40 mg Q12H ANNA Administration PFSH Anesthesia Medical History Diabetes HTN (hypertension) Hyperlipidemia Recurrent dehydration Surgical History Hx of hysterectomy Family History Brother Diabetes Sister Lung disease Daughter Lung disease Other Cancer Denies family history of CAD (coronary artery disease) Stroke Social History Smoking and tobacco status: former smoker Alcohol intake: never Substance/Drug Use: never Data Anesthesia 06/13/22 21:00 06/14/22 04:31 Short CBC 06/13/22 06/13/22 Range/Units 13:15 21:00 WBC 4.7 5.3 (4.0-10.0) 10^3/uL Hgb 6.9 L 8.2 L (11.5-15.3) g/dL Hct 21.3 L 25.4 L (37.0-47.0) % MCV 95.5 93.0 (81-99) fl Plt Count 222 217 (130-400) 10^3/cmm Neut % (Auto) 62.4 62.2 % Neut # (Auto) 2.95 3.29 (1.8-7.7) 10^3/uL BMP 06/13/22 06/14/22 13:15 04:31 Sodium 137 141 Potassium 3.8 3.8 Chloride 99 105 Carbon Dioxide 25 23 BUN 37 H 41 H Creatinine 2.4 H 2.5 H Glucose 121 H 99 Calcium 8.9 8.2 L Liver Function 06/13/22 06/14/22 Range/Units 13:15 04:31 Total Bilirubin 0.2 0.2 (0.15-1.2) mg/dL AST 16 15 (0-32) U/L ALT 11 10 (0-33) U/L Alkaline Phosphatase 47 45 (35-105) U/L Albumin 3.9 3.4 L (3.5-5.2) g/dL Urine 06/13/22 Range/Units 13:51 Urine Color Yellow (Yellow) Urine Appearance Clear (CLEAR) Urine pH 5 (5-7) Ur Specific [place] 1.005 (1.005-1.030) Urine Protein Neg (Negative) Urine Glucose (UA) Norm (Normal) Urine Ketones Negative (Negative) Urine Nitrate Negative (Negative) Urine Bilirubin Neg (Negative) Ur Leukocyte Esterase Negative (Negative) Urine RBC 0-4 H (0-2) /hpf Urine WBC None (0-5) /hpf Blood Bank 06/13/22 13:15 Blood Type B Positive Rho(D) Type Positive Antibody Screen Not Reportable [facility] 06/13/22 13:15 PT 13.30 INR 0.98 APTT 29.0 Cardiac Studies: Echocardiogram 09/21/20
--- NOTE | 2022-06-14 12:41 | PM.CONSULT ---
Providers/Reason For Consult Consulting Physician/Specialty*: Dr. Danish Fernandes DO/General surgery Reason for Consult*: Acute blood loss anemia, melena Attending Physician: Maritza Adhikari MD Primary Care Provider: Joaquin Kitchen DO History of Present Illness History of Present Illness Zeina Chamberlain is a 87 year old female who presents to the hospital from her primary care physician's office due to melena. She was found to be anemic. She reports that she is having black stools for the last week. Just prior to that she felt ill and was vomiting. She denies any hematemesis. She denies any recent travel or sick contacts. She reports that she seldomly takes ibuprofen and rarely ever gets heartburn. She denies any pain. Review of Systems General: Reports: 10 or more systems reviewed and unremarkable except in HPI and below Medications/Allergies Home Medications Medication Instructions Recorded Confirmed Last Taken Type potassium gluconate 595 mg (99 mg) 595 mg PO BEDTIME 02/19/21 06/13/22 06/12/22 History tablet metoprolol succinate 50 mg 50 mg PO QAM 12/03/21 06/13/22 06/13/22 History tablet,extended release 24 hr isclgjck-rlm-qcxus1 250 mg-dha 90 1 cap PO QAM 04/22/22 06/13/22 06/13/22 History mg-epa 160 sk-hwye-apwr-zeax capsule (Ocuvite Adult 50 Plus) amitriptyline 25 mg tablet 25 mg PO QAM 06/13/22 06/13/22 06/13/22 History biotin 5,000 mcg sublingual tablet 10,000 mcg sublingual QAM 06/13/22 06/13/22 06/13/22 History chromium picolinate 400 mcg tablet 400 mcg PO QAM 06/13/22 06/13/22 06/13/22 History gabapentin 300 mg capsule 600 mg PO BEDTIME 06/13/22 06/13/22 06/12/22 History ibuprofen 800 mg tablet See Rx Instructions .Route .COMPLEX 06/13/22 06/13/22 06/13/22 History lovastatin 20 mg tablet 20 mg PO QAM 06/13/22 06/13/22 06/13/22 History pioglitazone 30 mg tablet 30 mg PO QAM 06/13/22 06/13/22 06/13/22 History vitamin with calcium 1 tab PO QAM 06/13/22 06/13/22 06/13/22 History no.72-iron 27 mg-folic acid 1 mg tablet (M-Anisa Plus) sitagliptin phosphate 50 mg tablet 50 mg PO QAM 06/13/22 06/13/22 06/13/22 History (Januvia) Allergies Allergy/AdvReac Type Severity Reaction Status Date / Time No Known Allergies Allergy Verified 06/13/22 14:07 Current Medications Generic Name Dose Route Start Last Admin Trade Name Freq PRN Reason Stop Dose Admin Amitriptyline HCl 25 mg 06/14/22 06:00 06/14/22 04:16 Amitriptyline 25 Mg Tablet PO Not Given QAM ANNA Atorvastatin Calcium 20 mg 06/14/22 06:00 06/14/22 04:16 Atorvastatin 40 Mg Tablet PO Not Given QAM ANNA Gabapentin 600 mg 06/13/22 21:00 06/13/22 21:03 Gabapentin 300 Mg Capsule PO 600 mg BEDTIME ANNA Administration Sodium Chloride 1,000 mls @ 75 mls/hr 06/13/22 18:10 06/14/22 06:11 Sodium Chloride 0.9% IV 100 mls/hr .[id number] ANNA Administration Insulin Human Lispro 0 unit 06/13/22 21:00 06/14/22 11:29 Insulin Lispro 100 Unit/1 Ml SUBCUT Not Given WM&BEDTIME ANNA Protocol Metoprolol Succinate 50 mg 06/14/22 06:00 06/14/22 04:16 Metoprolol Succinate Er (24 Hr) 50 Mg Tablet PO Not Given QAM ANNA Morphine Sulfate 2 mg 06/13/22 18:58 06/14/22 08:28 Morphine 4 Mg/Ml Sdv 1 Ml IVP 2 mg Q4H PRN Administration SEVERE PAIN Pantoprazole Sodium 40 mg 06/13/22 19:00 06/14/22 06:11 Pantoprazole 40 Mg Sdv IVP 40 mg Q12H ANNA Administration PFSH Acute PFSH: Medical History Diabetes HTN (hypertension) Hyperlipidemia Recurrent dehydration Surgical History Hx of hysterectomy Family History Brother Diabetes Sister Lung disease Daughter Lung disease Other Cancer Denies family history of CAD (coronary artery disease) Stroke Social History Smoking and tobacco status: former smoker Alcohol intake: never Substance/Drug Use: never Vitals/I&O/Wt Last Vital Signs Temp 97.4 F L 06/14/22 11:48 Pulse 86 06/14/22 11:48 Resp 16 06/14/22 11:48 BP 172/90 06/14/22 11:48 Pulse Ox 93 06/14/22 11:48 O2 Del Method Room Air 06/14/22 11:48 06/13/22 06/14/22 06/14/22 22:59 06:59 14:59 Intake Total 1240 / 1240 1000 / 2240 Output Total 400 / 400 Balance 840 / 840 1000 / 1840 Weight last 48 hrs Weight 191 lb Physical Exam Narrative: General : Patient is well developed , no acute distress, oriented x3 Head : Normal cephalic, a-traumatic. Ears : Pinnae and external canal are normal. Hearing is normal. Eyes : Sclera and injection are normal. No conjunctival discharge. Nose : Mucous membranes are without erythema. Throat : buccal mucosa is normal, gums are without significant recession or hypertrophy. Lungs : Equal chest rise bilaterally, no use of accessory muscles, trachea is midline. Cor : Rate and rhythm are normal. Abdomen : Soft, ND, NT, no g/r/m Extremities : No edema, no cyanosis or clubbing, dorsalis pedis pulses are present bilaterally, non-tender to palpation of calves. Upper extremities are normal bilaterally. Back : non-tender to palpation, no CVA tenderness. Neuro : CN II - XII intact, Upper and lower extremities have equal and full strength Data 06/13/22 21:00 06/14/22 04:31 A&P Assessment and plan (1) Anemia: (2) GI bleed: (3) Black stools: Plan EGD The risks and benefits of the procedure, including bleeding, infection, intestinal perforation requiring surgery, missed lesion were explained to the patient. The patient is understanding of the risks and wishes to proceed. Coding Level of Care Code Acute Code for [facility] Fwd Diagnoses Anemia D64.9 GI bleed K92.2 Black stools K92.1
[2022-06-14] MEDS: sodium chloride 0.9% 1,000 ML 30 ML IV (12:53)
[2022-06-14] MEDS: EPINEPHrine 1 mg/mL INJ XX (13:10)
--- NOTE | 2022-06-14 13:15 | ANE.PACU2 ---
Inpatient post-anesthesia follow up: Airway intact: Yes Vital signs: Temperature 97.3 F Pulse Rate 90 Respiratory Rate 18 Blood Pressure 182/91 Pulse Oximetry 96 Oxygen Delivery Me thod Room Air Oxygen Flow Rate Fraction of Inspir ed Oxygen Hydration adequate: Yes Nausea and vomiting: No Pain level: 1 Mental status: Baseline
--- NOTE | 2022-06-14 13:16 | SUR.OPER ---
9mls of ns reconstituted with 1ml of epi for bleeding near fundic ulcer bx
--- NOTE | 2022-06-14 16:46 | PM.PN ---
Subjective Subjective: Patient underwent EGD today which found evidence of gastric ulcer. Hemoglobin improved this morning. We will continue to serially monitor. No acute complaints. After returning from endoscopy her blood pressure was 201/83, for which she received hydralazine with good improvement down to 150/70. Vitals/I&O/Wt Last Vital Signs Temp 97.3 F L 06/14/22 13:05 Pulse 91 06/14/22 13:15 Resp 16 06/14/22 13:15 BP 152/83 06/14/22 13:15 Pulse Ox 96 06/14/22 13:15 O2 Del Method Room Air 06/14/22 13:15 06/14/22 06/14/22 06/14/22 06:59 14:59 22:59 Intake Total 1000 / 2590 500 / 500 1000 / 1500 Balance 1000 / 2190 500 / 500 1000 / 1500 Weight last 48 hrs Weight 86.636 kg Physical Exam Narrative: General: No acute distress, AO x3 HEENT: PERRLA, pupils bilaterally equal and reactive, pallors not present Chest: Normal vesicular breath sounds, no added sounds, equal good air entry bilaterally CVS: S1-S2 regular, no murmurs, no tachycardia, no gallops, no rubs Abdomen: Soft, nontender, no organomegaly, bowel sounds present Neuro: No focal deficits, no facial deformity, AO x3, power 5/5 in all limbs Data 06/13/22 21:00 06/14/22 04:31 A&P Assessment and plan (1) GI bleed: Upper GI bleed Status post endoscopy today Found to have gastric ulcer Continue Protonix 40 mg IV every 12 hours Add Carafate Biopsy taken, results pending. (2) Anemia: Anemia secondary to upper GI bleed. Hemoglobin stable this morning after receiving 1 packed red blood cell transfusion. We will continue to serially monitor Plan Possible IRVING on CKD, unknown past baseline recently. Continue IV fluids. Monitor urine output. CT of the abdomen without any obstructive process. Closely monitor patient over the next 24 hours, if hemoglobin stable, will anticipate discharge home. Attestations Medical Necessity Statement*: Status post EGD today, found to have a gastric ulcer which was likely the source of the bleed, continue Protonix IV fluids, given high risk of rebleed within the first 48 hours, will monitor patient over the next day here in the hospital. Coding Level of Care Code Acute Code for [facility] Fwd Diagnoses GI bleed K92.2 Anemia D64.9
[2022-06-14 16:59] LABS: Glucose Point of Care 185 mg/dL (70-110)
[2022-06-14] MEDS: acetaminophen 325 mg Tablet 650 MG PO (17:19)
[2022-06-14] MEDS: insulin lispro 100 unit/1 mL SUBCUT (17:19)
[2022-06-14 17:39] LABS: Hematocrit 27.4 % (37.0-47.0); Hemoglobin 8.7 g/dL (11.5-15.3)
[2022-06-14] MEDS: gabapentin 300 mg Capsule 600 MG PO (21:54)
[2022-06-14] MEDS: sodium chloride 0.9% 1,000 ML 75 ML IV (21:54)
[2022-06-14 22:03] LABS: Glucose Point of Care 123 mg/dL (70-110)
[2022-06-15] VITALS: BP 176/77; PULSE 94; RESP 18; TEMP 36.8; O2SAT 95
[2022-06-15] MEDS: metoprolol succinate ER (24 HR) 50 mg Tablet PO (06:08)
[2022-06-15] MEDS: pantoprazole 40 mg SDV IVP (06:08)
[2022-06-15] MEDS: atorvastatin 40 mg Tablet 20 MG PO (06:08)
[2022-06-15] MEDS: amitriptyline 25 mg Tablet PO (06:08)
[2022-06-15 06:38] LABS: Glucose Point of Care 168 mg/dL (70-110)
[2022-06-15 06:55] LABS: Basophils % 0.5 %; Eosinophils # 0.2 10^3/uL (0.0-0.8); Eosinophils % 3.7 %; Hematocrit 28.8 % (37.0-47.0); Hemoglobin 9.2 g/dL (11.5-15.3); Lymphocytes # 1.2 10^3/uL (0.8-4.8); Lymphocytes % 18.3 %; Mean Corpuscular HGB Conc 31.9 g/dL (30.0-36.0); Mean Corpuscular Hemoglobin 30.7 pg (28.0-34.0); Mean Platelet Volume 9.8 fL (7.4-10.4); Monocytes # 0.6 10^3/uL (0.2-0.9); Monocytes % 9.7 %; Neutrophils # 4.25 10^3/uL (1.8-7.7); Neutrophils % 67.3 %; Nucleated Red Blood Cells % 0 %; Platelet Count 243 10^3/cmm (130-400); Red Cell Distribution Width 13.8 % (12.1-15.1); White Blood Count 6.3 10^3/uL (4.0-10.0)
[2022-06-15 07:29] LABS: Alanine Aminotransferase 10 U/L (0-33); Albumin Level 3.9 g/dL (3.5-5.2); Alkaline Phosphatase 50 U/L (35-105); Anion Gap 17.8 (5-19); Aspartate Amino Transferase 15 U/L (0-32); Blood Urea Nitrogen 30 mg/dL (8-23); Calcium 8.4 mg/dL (8.5-10.5); Carbon Dioxide 24 mmol/L (22-29); Chloride 101 mmol/L (98-107); Globulin 2.9 g/dL (1.3-4.6); Glucose 150 mg/dL (65-115); Osmolality Calculated 297 mOsm/kg (285-295); Potassium 3.8 mmol/L (3.5-5.1); Sodium 139 mmol/L (136-145); Total Bilirubin 0.2 mg/dL (0.15-1.2); Total Protein 6.8 g/dL (6.6-8.7)
[2022-06-15 07:33] LABS: Creatinine Clr Calc Pharmacy 22.6394
[2022-06-15 08:00] VITALS: BP 177/102; PULSE 92; TEMP 36.6; O2SAT 97
[2022-06-15] MEDS: insulin lispro 100 unit/1 mL SUBCUT ×2 (08:32→11:51)
--- NOTE | 2022-06-15 11:21 | P.DS_ITS ---
Discharge Providers Date of Admission: 06/13/22 17:22 Date of Discharge: June 15, 2022 Attending Provider at Admission: Maritza Adhikari MD Attending Provider at Discharge: Maritza Adhikari MD Primary Care Provider: Joqauin Kitchen DO Diagnoses at Discharge Discharge Diagnosis (1) GI bleed: Status: Acute (2) Anemia: Status: Acute (3) IRVING (acute kidney injury): Status: Acute Reason for Visit Reason for Visit: Abnormal Lab Hospital Course Hospital Course Zeina Chamberlain is a 87 year old female presenting with abdominal discomfort and drak black melanotic stools over the past week. Prsented to her PCP where she was found to have anemia. Vomiting + but no hematemesis. No fever. no past h/o GI bleed. Chronically takes NSAIDs and reports heartburn. cr found to be 2.5, previosuly 1.3 from 09/2021. on 06/14 Patient underwent EGD today which found evidence of gastric ulcer.? Hemoglobin improved after PRBC transfusion to 9.2 this morning. No further melanotic episodes noted. Creatinine has also improved down to 1.9. patient diuresing well at discharge. She is being discharged today in stable condition with recommendation to stop using all NSAIDs. Which may have contributed to her gastric ulcer and also to her kidney injury. Follow-up with surgery within 7 to 10 days of discharge for final biopsy results from the gastric ulcer. Physical Exam Narrative: General: No acute distress, AO x3 HEENT: PERRLA, pupils bilaterally equal and reactive, pallors not present Chest: Normal vesicular breath sounds, no added sounds, equal good air entry bilaterally CVS: S1-S2 regular, no murmurs, no tachycardia, no gallops, no rubs Abdomen: Soft, nontender, no organomegaly, bowel sounds present Neuro: No focal deficits, no facial deformity, AO x3, power 5/5 in all limbs Discharge Data Studies Completed and Pending Completed Studies During Hospitalization Category Date Time Status CT abdomen pelvis con [id number] Stat Cat Scan 06/13/22 14:38 Completed Pending at discharge Category Date Time Status Occult Blood Stool [Immunochemical Fecal OCB] Routine Lab 06/13/22 12:39 Uncollected Pathology: Surgical [PTH] Routine Pth 06/14/22 13:14 Received Radiology Impressions Abdomen/Pelvis CT 06/13/22 14:38 IMPRESSION: 1. Cholelithiasis without evidence for acute cholecystitis. 2. Mild hepatomegaly. 3. No renal obstruction. 4. No adenopathy or ascites. Laboratory Results WBC 6.3 10^3/uL (4.0-10.0) 06/15/22 06:30 RBC 3.00 10^6/uL (4.1-5.3) L 06/15/22 06:30 Hgb 9.2 g/dL (11.5-15.3) L 06/15/22 06:30 Hct 28.8 % (37.0-47.0) L 06/15/22 06:30 MCV 96.0 fl (81-99) 06/15/22 06:30 MCH 30.7 pg (28.0-34.0) 06/15/22 06:30 MCHC 31.9 g/dL (30.0-36.0) 06/15/22 06:30 RDW 13.8 % (12.1-15.1) 06/15/22 06:30 Plt Count 243 10^3/cmm (130-400) 06/15/22 06:30 MPV 9.8 fL (7.4-10.4) 06/15/22 06:30 Neut % (Auto) 67.3 % 06/15/22 06:30 Lymph % (Auto) 18.3 % 06/15/22 06:30 Coles % (Auto) 9.7 % 06/15/22 06:30 Eos % (Auto) 3.7 % 06/15/22 06:30 Baso % (Auto) 0.5 % 06/15/22 06:30 Neut # (Auto) 4.25 10^3/uL (1.8-7.7) 06/15/22 06:30 Lymph # (Auto) 1.2 10^3/uL (0.8-4.8) 06/15/22 06:30 Coles # (Auto) 0.6 10^3/uL (0.2-0.9) 06/15/22 06:30 Eos # (Auto) 0.2 10^3/uL (0.0-0.8) 06/15/22 06:30 Baso # (Auto) 0.0 10^3/uL (0.0-0.1) 06/15/22 06:30 Nucleated RBC % (auto) 0 % 06/15/22 06:30 Nucleated RBCs # 0.0 /100WBC 06/15/22 06:30 PT 13.30 SECONDS (12.1-14.9) 06/13/22 13:15 INR 0.98 (0.8-1.2) 06/13/22 13:15 APTT 29.0 SECONDS (23.9-36.7) 06/13/22 13:15 Sodium 139 mmol/L (136-145) 06/15/22 06:30 Potassium 3.8 mmol/L (3.5-5.1) 06/15/22 06:30 Chloride 101 mmol/L (98-107) 06/15/22 06:30 Carbon Dioxide 24 mmol/L (22-29) 06/15/22 06:30 Anion Gap 17.8 (5-19) 06/15/22 06:30 BUN 30 mg/dL (8-23) H 06/15/22 06:30 Creatinine 1.9 mg/dL (0.5-0.9) H 06/15/22 06:30 GFR Calculation Not Reportable 06/15/22 06:30 Glucose 150 mg/dL (65-115) H 06/15/22 06:30 POC Glucose 168 mg/dL (70-110) H 06/15/22 06:34 Calculated Osmolality 297 mOsm/kg (285-295) H 06/15/22 06:30 Calcium 8.4 mg/dL (8.5-10.5) L 06/15/22 06:30 Total Bilirubin 0.2 mg/dL (0.15-1.2) 06/15/22 06:30 AST 15 U/L (0-32) 06/15/22 06:30 ALT 10 U/L (0-33) 06/15/22 06:30 Alkaline Phosphatase 50 U/L (35-105) 06/15/22 06:30 Total Protein 6.8 g/dL (6.6-8.7) 06/15/22 06:30 Albumin 3.9 g/dL (3.5-5.2) 06/15/22 06:30 Globulin 2.9 g/dL (1.3-4.6) 06/15/22 06:30 Urine Color Yellow (Yellow) 06/13/22 13:51 Urine Appearance Clear (CLEAR) 06/13/22 13:51 Urine pH 5 (5-7) 06/13/22 13:51 Ur Specific [place] 1.005 (1.005-1.030) 06/13/22 13:51 Urine Protein Neg (Negative) 06/13/22 13:51 Urine Glucose (UA) Norm (Normal) 06/13/22 13:51 Urine Ketones Negative (Negative) 06/13/22 13:51 Urine Blood 2+ (Negative) H 06/13/22 13:51 Urine Nitrate Negative (Negative) 06/13/22 13:51 Urine Bilirubin Neg (Negative) 06/13/22 13:51 Urine Urobilinogen Neg mg/dL (Negative) 06/13/22 13:51 Ur Leukocyte Esterase Negative (Negative) 06/13/22 13:51 Urine RBC 0-4 /hpf (0-2) H 06/13/22 13:51 Urine WBC None /hpf (0-5) 06/13/22 13:51 Ur Squamous Epith Cells None /hpf (0-5) 06/13/22 13:51 Amorphous Sediment 1+ /hpf 06/13/22 13:51 Urine Bacteria None /hpf (NONE) 06/13/22 13:51 Blood Type B Positive 06/13/22 13:15 Rho(D) Type Positive 06/13/22 13:15 Antibody Screen Not Reportable 06/13/22 13:15 PEG Antibody Screen Negative 06/13/22 13:15 Crossmatch See Detail 06/13/22 13:15 Vitals Last Vital Signs Temp 98 F 06/15/22 08:00 Pulse 92 06/15/22 08:00 Resp 18 06/15/22 00:00 BP 177/102 06/15/22 08:00 Pulse Ox 97 06/15/22 08:00 O2 Del Method Room Air 06/15/22 00:00 Discharge Plan Discharge Patient Disposition: Home Condition: Stable Prescriptions: New sucralfate [Carafate] 1 gram tablet 1 g PO BID 28 Days Qty: 56 0RF pantoprazole [Protonix] 40 mg tablet,delayed release (DR/EC) 40 mg PO BID 28 Days Qty: 56 0RF Continued potassium gluconate 595 mg (99 mg) tablet 595 mg PO BEDTIME metoprolol succinate 50 mg tablet extended release 24 hr 50 mg PO QAM Ocuvite Adult 50 Plus 250 mg (90 mg-160 mg) capsule 1 cap PO QAM biotin 5,000 mcg Tablet, Sublingual 10,000 mcg SUBLINGUAL QAM chromium picolinate 400 mcg Tablet 400 mcg PO QAM amitriptyline 25 mg tablet 25 mg PO QAM gabapentin 300 mg capsule 600 mg PO BEDTIME lovastatin 20 mg tablet 20 mg PO QAM pioglitazone 30 mg tablet 30 mg PO QAM Januvia 50 mg tablet 50 mg PO QAM M-Anisa Plus 27 mg iron- 1 mg tablet 1 tab PO QAM Discontinued ibuprofen 800 mg tablet See Rx Instructions .ROUTE .COMPLEX Rx Instructions: 800mg po qam and 1600mg bedtime Discharge Orders: Discharge Order (Routine); Ordered 06/15/22 Ordered By: Maritza Adhikari Referrals: Joaquin Kitchen DO [Primary Care Provider] - Danish Fernaneds DO [Physician] - 7-10 days Discharge Diet: Usual diet Discharge Activity: Resume usual activity Patient Instructions: GI Discharge Instructions, Opioid Safety Discharge Attestations Time Spent in Discharge Care*: greater than 30 min Quality Metrics Clinical Quality Measures [ No reported AMI, CVA or VTE this stay] Coding Level of Care Code Acute Code for Chg Fwd Diagnoses GI bleed K92.2 Anemia D64.9 IRVING (acute kidney injury) N17.9
[2022-06-15 12:01] LABS: Glucose Point of Care 120 mg/dL (70-110)
--- NOTE | 2022-06-15 13:24 | P.PN_ITS ---
Subjective Subjective: Patient seen and examined. She denies any abdominal pain, nausea, emesis. Vitals/I&O/Wt Last Vital Signs Temp 98 F 06/15/22 08:00 Pulse 92 06/15/22 08:00 Resp 18 06/15/22 00:00 BP 177/102 06/15/22 08:00 Pulse Ox 97 06/15/22 08:00 O2 Del Method Room Air 06/15/22 00:00 06/14/22 06/15/22 06/15/22 22:59 06:59 14:59 Intake Total 1360 / 1860 360 / 360 Balance 1360 / 1860 360 / 360 Physical Exam Narrative: General: No acute distress, awake alert and oriented x3 Abdomen: Soft, nontender, nondistended, no guarding rebound or masses Data 06/15/22 06:30 06/15/22 06:30 A&P Assessment and plan (1) Gastric ulcer: (2) GI bleed: (3) Anemia: Plan She has a single large and cratered ulcer in the body of the stomach. This was biopsied yesterday and epinephrine was injected to control postbiopsy bleeding. She should follow-up in my office in 1 to 2 weeks for biopsy results [place] diet Medical management per primary Attestations Medical Necessity Statement*: Per primary Coding Level of Care Code Acute Code for Chg Fwd Diagnoses Gastric ulcer K25.9 GI bleed K92.2 Anemia D64.9
[2022-06-15 13:30] LABS: Glucose Point of Care 161 mg/dL (70-110)
[2022-06-15 16:00] VITALS: BP 157/73; PULSE 95; RESP 17; TEMP 36.4; O2SAT 96
[2022-06-15 16:13] VITALS: BP 157/73; PULSE 95; RESP 17; TEMP 36.4; O2SAT 96
[2022-06-15 16:14] LABS: Glucose Point of Care 223 mg/dL (70-110)
== END 2022-06-15 16:14 | disposition home or self-care (01) ==
LOC: ER 13:41 → MEDSURG 18:40
PROVIDERS: Surgery; Admitting Provider Student in an Organized Health Care Education/Training Program; Emergency Provider Family Medicine; PCP Family Medicine; Visit Provider Student in an Organized Health Care Education/Training Program
PROC: 0DJ08ZZ Inspection of Upper Intestinal Tract, Via Natural or Artificial Opening Endoscopic (ICD-10-PCS; CPT 43235; principal; 2022-06-14 11:45)
DX: K25.4 Chronic or unspecified gastric ulcer with hemorrhage (principal); K29.51 Unspecified chronic gastritis with bleeding; D62 Acute posthemorrhagic anemia; N17.9 Acute kidney failure, unspecified; Z79.1 Long term (current) use of non-steroidal anti-inflammatories (NSAID); E11.9 Type 2 diabetes mellitus without complications; I10 Essential (primary) hypertension; E78.5 Hyperlipidemia, unspecified
CPT/HCPCS: 36415; 36416; 36430; 43239; 43255; 74176; 80053; 81001; 82962; 85014; 85018; 85025; 85610; 85730; 86850; 86900; 86920; 88305; 88342; 96372; 96374; 96375; 99285; C9113; G0328; G0378; J0171; J1815; J2270; J2405; J2704; J7030; P9016

== ENCOUNTER → 2022-06-20 08:51 | Outpatient (BNVA) | payer MEDICARE, MEDICAID, SELFPAY | PROVIDERS: PCP Family Medicine; Visit Provider Family Medicine | DX: D64.9 Anemia, unspecified (principal); K92.2 Gastrointestinal hemorrhage, unspecified | CPT/HCPCS: 85007; 85025 ==

== ENCOUNTER → 2022-06-25 13:09 | Outpatient (BNVA) | payer MEDICARE, MEDICAID, SELFPAY | PROVIDERS: PCP Family Medicine; Visit Provider Surgery | DX: K29.70 Gastritis, unspecified, without bleeding (principal); K25.9 Gastric ulcer, unspecified as acute or chronic, without hemorrhage or perforation; B96.81 Helicobacter pylori [H. pylori] as the cause of diseases classified elsewhere | CPT/HCPCS: 99203 ==

== ENCOUNTER → 2022-07-18 09:14 | Outpatient (BNVA) | payer MEDICARE, MEDICAID, SELFPAY | PROVIDERS: PCP Family Medicine; Visit Provider Family Medicine | DX: E11.9 Type 2 diabetes mellitus without complications (principal); D64.9 Anemia, unspecified | CPT/HCPCS: 83036; 85025 ==

== ENCOUNTER 2022-07-19 08:37 | Day surgery (SDC) | payer MEDICARE, MEDICAID, SELFPAY ==
[2022-07-18 13:10] VITALS: BMI 32.8
[2022-07-19 09:33] VITALS: BP 202/93; PULSE 73; RESP 16; TEMP 36.1; O2SAT 98
[2022-07-19] MEDS: sodium chloride 0.9% 1,000 ML 30 ML IV (09:38)
[2022-07-19 09:45] LABS: Glucose Point of Care 152 mg/dL (70-110)
--- NOTE | 2022-07-19 11:03 | P.ANESASSM_ITS ---
Pre-Anesthetic Assessment Height/Weight: Height 1.63 m Weight 86.636 kg Temp Pulse Resp BP Pulse Ox O2 Del Method 97.0 F L 73 16 202/93 98 Room Air 07/19/22 09:33 07/19/22 09:33 07/19/22 09:33 07/19/22 09:33 07/19/22 09:33 07/19/22 09:33 Preop Diagnosis: gastric ulcer Operation Date: 07/19/22 10:45 Proposed Procedures p EGD 81617,K25.9(Not Applicable) - Danish Fernandes DO Familial anesthetic complications: none Was Beta Samir taken within 24 hours: N/A Was Clonidine taken within 24 hours: N/A Last intake: Intake Last Liquid Date 07/18/22 Last Liquid Time 20:00 Last Solid Date 07/18/22 Last Solid Time 18:00 Social No alcohol and No tobacco Exam alert and oriented x 3 Airway Submandibular: within normal limits Cervical ROM: within normal limits Mallampati: Class I Dentition: false History/ROS No significant history except as noted Pulmonary None reported CV/HEM Hypertension None reported Hepatic None reported GI Gastroesophageal Reflux Disease Metabolic Hyperlipidemia and Morbid Obesity [facility] [place], [place]/[facility] None reported Neuropsych None reported Anesthetic Plan ASA status: 3 Anesthesia: Anesthesia Evaluation, General and MAC Medications/Allergies Home Medications Medication Instructions Recorded Confirmed Last Taken Type potassium gluconate 595 mg (99 mg) 595 mg PO BEDTIME 02/19/21 07/19/22 07/18/22 History tablet metoprolol succinate 50 mg 50 mg PO QAM 12/03/21 07/19/22 07/18/22 History tablet,extended release 24 hr amitriptyline 25 mg tablet 25 mg PO QAM 06/13/22 07/19/22 07/18/22 History biotin 5,000 mcg sublingual tablet 10,000 mcg sublingual QAM 06/13/22 07/19/22 07/18/22 History lovastatin 20 mg tablet 20 mg PO QAM 06/13/22 07/19/22 07/18/22 History pioglitazone 30 mg tablet 30 mg PO QAM 06/13/22 07/19/22 07/18/22 History vitamin with calcium 1 tab PO QAM 06/13/22 07/19/22 07/18/22 History no.72-iron 27 mg-folic acid 1 mg tablet (M- Plus) sitagliptin phosphate 50 mg tablet 50 mg PO QAM 06/13/22 07/19/22 07/18/22 History (Januvia) duloxetine 20 mg capsule,delayed 20 mg PO DAILY 06/20/22 07/19/22 07/18/22 History release gabapentin 300 mg capsule 300 mg PO BID 06/20/22 07/19/22 07/18/22 History meclizine 25 mg tablet 25 mg PO TID PRN Dizziness 07/18/22 07/19/22 07/18/22 Hi story pantoprazole 40 mg tablet,delayed 40 mg PO BID 4 weeks #60 tabs 07/18/22 07/19/22 07/18/22 Rx release (Protonix) amoxicillin 500 mg tablet 500 mg PO BID 07/19/22 07/19/22 07/18/22 History kcgzgjnn-hak- 250 mg-dha 90 1 cap PO DAILY 07/19/22 07/19/22 07/18/22 History mg-epa 160 uq-wroe-slye-zeax capsule (Ocuvite Adult 50 Plus) Allergies Allergy/AdvReac Type Severity Reaction Status Date / Time No Known Allergies Allergy Verified 07/18/22 13:07 Current Medications Generic Name Dose Route Start Last Admin Trade Name Freq PRN Reason Stop Dose Admin Sodium Chloride 1,000 mls @ 30 mls/hr 07/19/22 09:30 07/19/22 09:38 Sodium Chloride 0.9% IV 07/20/22 09:29 30 mls/hr .Q24H ANNA Administration PFSH Anesthesia Medical History Diabetes HTN (hypertension) Hyperlipidemia Recurrent dehydration Surgical History Hx of hysterectomy Family History Brother Diabetes Sister Lung disease Daughter Lung disease Other Cancer Denies family history of CAD (coronary artery disease) Stroke Social History Smoking and tobacco status: former smoker Alcohol intake: never Substance/Drug Use: never Data Anesthesia Cardiac Studies: Echocardiogram 09/21/20
--- NOTE | 2022-07-19 11:21 | W.PM.OPSUD ---
Surgery/Procedure H&P Update DATE OF PROCEDURE: July 19, 2022 DATE H&P PERFORMED: 06/25/22 H&P UPDATE INFORMATION: I have reviewed H&P completed within last 30 days, I have examined patient prior to procedure and No changes to prior documentation PREOP DIAGNOSIS: gastric ulcer PLANNED PROCEDURE: Operation Date: 07/19/22 10:45 Proposed Procedures p EGD 55901,K25.9(Not Applicable) - Danish Fernandes DO
[2022-07-19 11:45] VITALS: BP 154/67; PULSE 81; RESP 16; TEMP 36.1; O2SAT 94
[2022-07-19 11:59] VITALS: BP 132/79; PULSE 79; RESP 18; O2SAT 95
--- NOTE | 2022-07-19 14:23 | ANE.PACU2 ---
Inpatient post-anesthesia follow up: Airway intact: Yes Vital signs: Temperature 97.0 F Pulse Rate 79 Respiratory Rate 18 Blood Pressure 132/79 Pulse Oximetry 95 Oxygen Delivery Me thod Room Air Oxygen Flow Rate Fraction of Inspir ed Oxygen Hydration adequate: Yes Nausea and vomiting: No Pain level: 2 Mental status: Baseline
== END 2022-07-19 12:08 | disposition home or self-care (01) ==
PROVIDERS: PCP Family Medicine; Visit Provider Surgery
PROC: 0DJ08ZZ Inspection of Upper Intestinal Tract, Via Natural or Artificial Opening Endoscopic (ICD-10-PCS; CPT 43235; principal; 2022-07-19 10:45)
DX: K25.9 Gastric ulcer, unspecified as acute or chronic, without hemorrhage or perforation (principal); I10 Essential (primary) hypertension; K21.9 Gastro-esophageal reflux disease without esophagitis; E78.5 Hyperlipidemia, unspecified; E66.01 Morbid (severe) obesity due to excess calories; Z68.32 Body mass index [BMI] 32.0-32.9, adult; Z87.891 Personal history of nicotine dependence
CPT/HCPCS: 36416; 43239; 82962; 88305; 88342; J2704; J7030

== ENCOUNTER → 2022-07-31 17:12 | Outpatient (BNVA) | payer MEDICARE, MEDICAID, SELFPAY | PROVIDERS: PCP Family Medicine; Visit Provider Surgery | DX: Z09 Encounter for follow-up examination after completed treatment for conditions other than malignant neoplasm (principal) | CPT/HCPCS: 99212 ==

== ENCOUNTER → 2022-08-19 09:01 | Outpatient (BNVA) | payer MEDICARE, MEDICAID, SELFPAY | PROVIDERS: PCP Family Medicine; Visit Provider Family Medicine | DX: D64.9 Anemia, unspecified (principal); E16.2 Hypoglycemia, unspecified | CPT/HCPCS: 85025 ==

== ENCOUNTER → 2022-09-05 10:41 | Outpatient (BNVA) | payer MEDICARE, MEDICAID, SELFPAY | PROVIDERS: PCP Family Medicine; Visit Provider Internal Medicine Cardiovascular Disease | DX: I44.0 Atrioventricular block, first degree (principal); R07.9 Chest pain, unspecified; I35.1 Nonrheumatic aortic (valve) insufficiency; I10 Essential (primary) hypertension; E11.9 Type 2 diabetes mellitus without complications; E78.5 Hyperlipidemia, unspecified; I35.8 Other nonrheumatic aortic valve disorders | CPT/HCPCS: 93005; 99214 ==

== ENCOUNTER → 2022-10-21 11:28 | Outpatient (BNVA) | payer MEDICARE, MEDICAID, SELFPAY | PROVIDERS: PCP Family Medicine; Visit Provider Family Medicine | DX: D64.9 Anemia, unspecified (principal); I10 Essential (primary) hypertension; E11.9 Type 2 diabetes mellitus without complications; Z78.9 Other specified health status | CPT/HCPCS: 85025 ==

== ENCOUNTER → 2022-12-10 15:34 | Outpatient (BNVA) | payer MEDICARE, MEDICAID, SELFPAY | PROVIDERS: PCP Family Medicine; Visit Provider Nurse Practitioner Family | DX: D64.9 Anemia, unspecified (principal); R63.8 Other symptoms and signs concerning food and fluid intake; D51.8 Other vitamin B12 deficiency anemias | CPT/HCPCS: 82607; 82728; 83550; 85025 ==

== ENCOUNTER → 2023-01-06 09:19 | Outpatient (BNVA) | payer MEDICARE, MEDICAID, SELFPAY | PROVIDERS: PCP Family Medicine; Visit Provider Family Medicine | DX: E11.9 Type 2 diabetes mellitus without complications (principal); D51.8 Other vitamin B12 deficiency anemias; I10 Essential (primary) hypertension | CPT/HCPCS: 83036 ==